=== PATIENT | female | born 1995 ===

== ENCOUNTER 2018-06-08 12:30 | Emergency (ER) | payer MEDICAID ==
[2018-06-08 12:34] VITALS: TEMP 98.5; O2SAT 99
[2018-06-08 12:35] VITALS: BMI 23.2
--- NOTE | 2018-06-08 13:03 | ED PDOC ---
HPI: Female Pain Time Seen by Provider: 06/08/18 12:34 Chief Complaint (Nursing): Female Genitourinary Chief Complaint (Provider): Pain and bleeding in History Per: Patient Additional Complaint(s): 23 yo female, no PMH, presents to ED for evaluation of vaginal bleeding and lower abdominal pain since yesterday. Patient is approximately 5 weeks , LMP 03/24/18, Past Medical History Reviewed: Nursing Documentation, Vital Signs Vital Signs: Last Vital Signs Temp 98.5 F 06/08/18 12:32 Pulse 77 06/08/18 12:32 Resp 16 06/08/18 12:32 BP 111/71 06/08/18 12:32 Pulse Ox 99 06/08/18 12:32 - Medical History PMH: No Chronic Diseases - Surgical History Surgical History: No Surg Hx - Family History Family History: States: No Known Family Hx - Living Arrangements Living Arrangements: With Family - Social History Current smoker - smoking cessation education provided: No Alcohol: None Drugs: Denies - Immunization History Hx Tetanus Toxoid Vaccination: Yes Hx Influenza Vaccination: No Hx Pneumococcal Vaccination: No - Home Medications Home Medications: Ambulatory Orders Medication Instructions Recorded No Known Home Med 02/09/18 - Allergies Allergies/Adverse Reactions: Allergies Allergy/AdvReac Type Severity Reaction Status Date / Time No Known Allergies Allergy Verified 06/08/18 12:36 Review of Systems ROS Statement: Except As Marked, All Systems Reviewed And Found Negative Gastrointestinal: Positive for: Abdominal Pain Genitourinary Female: Positive for: Vaginal Bleeding Physical Exam - Reviewed Nursing Documentation Reviewed: Yes Vital Signs Reviewed: Yes - Physical Exam Appears: Positive for: Well, Non-toxic, No Acute Distress Head Exam: Positive for: ATRAUMATIC, NORMAL INSPECTION, NORMOCEPHALIC Skin: Positive for: Normal Color, Warm, DRY Eye Exam: Positive for: EOMI, Normal appearance, PERRL ENT: Positive for: Normal ENT Inspection Neck: Positive for: Normal, Painless ROM Cardiovascular/Chest: Positive for: Regular Rate, Rhythm Respiratory: Positive for: CNT, Normal Breath Sounds Gastrointestinal/Abdominal: Positive for: Normal Exam, Soft. Negative for: Tenderness Back: Positive for: Normal Inspection Extremity: Positive for: Normal ROM Neurologic/Psych: Positive for: Alert, Oriented - Laboratory Results Result Diagrams: 06/08/18 13:15 - ECG O2 Sat by Pulse Oximetry: 99 Medical Decision Making Medical Decision Making: blood banK: O+ beta: 525 IMPRESSION: Small cystic structure within the endometrium without definitive decidual reaction, measures 7 range. Findings may represent early normal/ abnormal with ectopic not excluded. Close clinical follow-up with serial pelvic sonography and serum beta HCG levels is recommended. Pt educated on results and advised to follow up with OB or return to ED in 48 hours for repeat studies. advised to return to ED sooner if at anytime condition worsens. signs and symprtoms of ectopic discussed at length. abdomen soft, non tender and non distended on re-eval Disposition - Clinical Impression Clinical Impression: Threatened - Patient ED Disposition Is Patient to be Admitted: No - Disposition Disposition: Routine/Home Disposition Time: 15:47 Condition: STABLE Additional Instructions: Ultrasound results: IMPRESSION: Small cystic structure within the endometrium without definitive decidual reaction, measures 7 range. Findings may represent early normal/ abnormal with ectopic not excluded. Close clinical follow-up with serial pelvic sonography and serum beta HCG levels is recommended. Instructions: Bleeding With , Threatened Miscarriage Forms: [employer] (Azeri) Print Language: HEBREW
[2018-06-08 13:27] LABS: BASO % 0.4 % (0.0-2.0); EOS # 0.1 K/uL (0.0-0.7); EOS % 1.8 % (0.0-4.0); HEMOGLOBIN 12.6 g/dL (12.0-16.0); LYMPH # 1.2 K/uL (1.0-4.3); LYMPH % 14.6 % (20.0-40.0); MEAN CELL VOLUME 91.3 fl (81.0-99.0); MEAN CORPUSCULAR HEMOGLOBIN 30.8 pg (27.0-31.0); MEAN CORPUSCULAR HGB CONC 33.7 g/dL (33.0-37.0); MEAN PLATELET VOLUME 11.3 fl (7.2-11.7); MONO # 0.6 K/uL (0.0-0.8); NEUT # 6.4 K/uL (1.8-7.0); NEUT % 76.2 % (50.0-75.0); NRBC % 0.1 % (0.0-0.0); RBC 4.1 Mil/uL (3.80-5.20); RED CELL DISTRIBUTION WIDTH 13.5 % (11.5-14.5); WHITE BLOOD COUNT 8.4 K/uL (4.8-10.8)
[2018-06-08 14:13] LABS: SQUAMOUS EPITHIAL 4 /hpf (0-5); URINE BACTERIA RARE (<OCC); URINE BILIRUBIN NEGATIVE (NEGATIVE); URINE BLOOD LARGE (NEGATIVE); URINE CLARITY SLIGHTY-CLOUDY (Clear); URINE COLOR YELLOW (YELLOW); URINE GLUCOSE (UA) NEG (Normal); URINE LEUKOCYTE ESTERASE NEG Leu/uL (Negative); URINE PROTEIN NEGATIVE (NEGATIVE); URINE UROBILINOGEN 0.2-1.0 mg/dL (0.2-1.0)
--- NOTE | 2018-06-08 15:34 | US ---
Date of service: 06/08/2018 PROCEDURE: OB Pelvic Ultrasound HISTORY: pain and bleeding LMP: 03/24/2018 COMPARISON: None available. FINDINGS: UTERUS: Uterus measures 9.7 x 3.8 x 5.7 cm. Normal in size and appearance. Endometrium measures 11 mm. Small cystic structure within the endometrium measuring 0.5 cm, out of range, without definitive decidual reaction. CERVIX: Long and closed. No cervical abnormality seen. RIGHT OVARY: Measures 2.5 x 1.4 x 2.7 cm. No mass lesion. Normal flow. LEFT OVARY: Measures 3.4 x 2.4 x 2.7 cm. Cyst with debris measuring 1.5 x 1.2 x 1.5 cm. Normal flow. FREE FLUID: None. OTHER FINDINGS: None. IMPRESSION: Small cystic structure within the endometrium without definitive decidual reaction, measures 7 range. Findings may represent early normal/ abnormal with ectopic not excluded. Close clinical follow-up with serial pelvic sonography and serum beta HCG levels is recommended.
[2018-06-08 16:17] VITALS: BP 118/70; PULSE 81; RESP 18
== END 2018-06-08 16:12 | disposition home or self-care (01) ==
LOC: H.ER 12:30
DX: O20.0 Threatened abortion (principal); Z3A.01 Less than 8 weeks gestation of pregnancy

== ENCOUNTER 2019-04-06 11:19 | Emergency (ER) | payer MEDICAID ==
[2019-04-06 11:20] VITALS: BMI 26.5
[2019-04-06 11:22] VITALS: BP 101/67; PULSE 77; RESP 18; TEMP 98.8; O2SAT 99
--- NOTE | 2019-04-06 12:13 | ED PDOC ---
HPI: General Adult Time Seen by Provider: 04/06/19 12:09 Chief Complaint (Nursing): Female Genitourinary Chief Complaint (Provider): vaginal discharge History Per: Patient (24 y/o female approx M1 9 week gestation here with discharge 2 weeks intermittent brownish vaginal discharge. Notes mild abd pain. Denies any fevers/chills. Has appt with supervisor rough end next week.) Past Medical History Reviewed: Historical Data, Nursing Documentation, Vital Signs Vital Signs: Last Vital Signs Temp 98.8 F 04/06/19 11:20 Pulse 77 04/06/19 11:20 Resp 18 04/06/19 11:20 BP 101/67 04/06/19 11:20 Pulse Ox 99 04/06/19 11:20 Primary Care Provider: Procedure,Nonphys - Medical History PMH: Anemia - Family History Family History: States: No Known Family Hx - Immunization History Hx Tetanus Toxoid Vaccination: Yes Hx Influenza Vaccination: No Hx Pneumococcal Vaccination: No - Home Medications Home Medications: Ambulatory Orders Medication Instructions Recorded Iron 11/01/18 Vitamin Tablet 11/01/18 - Allergies Allergies/Adverse Reactions: Allergies Allergy/AdvReac Type Severity Reaction Status Date / Time No Known Allergies Allergy Verified 11/01/18 09:04 Review of Systems ROS Statement: Except As Marked, All Systems Reviewed And Found Negative Physical Exam - Reviewed Nursing Documentation Reviewed: Yes Vital Signs Reviewed: Yes - Physical Exam Appears: Positive for: Well, Non-toxic, No Acute Distress Head Exam: Positive for: ATRAUMATIC, NORMAL INSPECTION, NORMOCEPHALIC Skin: Positive for: Normal Color, Warm, DRY Eye Exam: Positive for: EOMI, Normal appearance, PERRL ENT: Positive for: Normal ENT Inspection Neck: Positive for: Normal, Painless ROM Cardiovascular/Chest: Positive for: Regular Rate, Rhythm Respiratory: Positive for: CNT, Normal Breath Sounds Gastrointestinal/Abdominal: Positive for: Normal Exam, Soft Pelvic Exam: Positive for: Other (bilateral adnexal tenderness elicited. No vaginal discharge noted. No blood in vault currently. Cervical os closed) Back: Positive for: Normal Inspection Extremity: Positive for: Normal ROM Neurological/Psych: Positive for: Awake, Alert, Normal Tone - Laboratory Results Result Diagrams: 04/06/19 12:32 04/06/19 12:32 - ECG O2 Sat by Pulse Oximetry: 99 - Progress ED Course And Treament: IMPRESSION: Single viable intrauterine gestation with average ultrasonic age of 9 weeks 1 day, concordant with LMP derived dates. No definite decidual hemorrhage appreciable at this time. cardiac activity 171 beats per minute. Clinical follow-up advised. Disposition - Clinical Impression Clinical Impression: Threatened miscarriage - Patient ED Disposition Is Patient to be Admitted: No - Disposition Disposition: Routine/Home Disposition Time: 18:24 Condition: FAIR Instructions: Threatened Miscarriage (DC) Forms: [facility] ED School/Work Excuse Print Language: MARSHALLESE
[2019-04-06 12:42] LABS: BASO % 0.6 % (0.0-2.0); EOS # 0.3 K/uL (0.0-0.7); EOS % 4.3 % (0.0-4.0); HEMOGLOBIN 11.4 g/dL (12.0-16.0); LYMPH # 1.4 K/uL (1.0-4.3); LYMPH % 20.8 % (20.0-40.0); MEAN CELL VOLUME 90.3 fl (81.0-99.0); MEAN CORPUSCULAR HEMOGLOBIN 30.2 pg (27.0-31.0); MEAN CORPUSCULAR HGB CONC 33.5 g/dL (33.0-37.0); MEAN PLATELET VOLUME 11.8 fl (7.2-11.7); MONO # 0.5 K/uL (0.0-0.8); MONO % 7.7 % (0.0-10.0); NEUT # 4.4 K/uL (1.8-7.0); NEUT % 66.6 % (50.0-75.0); RBC 3.77 Mil/uL (3.80-5.20); RED CELL DISTRIBUTION WIDTH 13.5 % (11.5-14.5); WHITE BLOOD COUNT 6.6 K/uL (4.8-10.8)
[2019-04-06 12:56] LABS: ALB/GLOB RATIO 1.3 (1.0-2.1); ALBUMIN 3.6 g/dL (3.5-5.0); ALT/SGPT 67 U/L (9-52); AST/SGOT 28 U/L (14-36); BLOOD UREA NITROGEN 7 mg/dl (7-17); CALCIUM 8.7 mg/dL (8.4-10.2); GFR NON-AFRICAN AMERICAN > 60
--- NOTE | 2019-04-06 18:10 | US ---
Date of service: 04/06/2019 PROCEDURE: OB Pelvic Ultrasound HISTORY: abdominal pain in LMP: 02/02/2019 suggesting gestation of 9 weeks 2 days. COMPARISON: None available. FINDINGS: UTERUS: Gestational sac: Single intrauterine gestation. Heart rate: 171 bpm. age (Ultrasound estimated): No weeks 1 day by mean CRL of 2.5 cm. Mean sac diameter 3.5 cm. Yolk sac measures 0.6 cm. Maria Isabel-gestational hemorrhage: None. Date of delivery (Ultrasound estimated) : 11/10/2019. Uterus measures 9.8 x 6.7 x 6.0 cm. Normal in size and appearance. CERVIX: Measures 4.4 cm. Long and closed. No cervical abnormality seen. RIGHT OVARY: Measures 3.2 x 3.1 x 1.8 cm. No mass lesion. Normal flow. LEFT OVARY: Measures 3.0 x 2.4 x 1.2 cm. No solid mass. Normal flow. FREE FLUID: None. OTHER FINDINGS: None. IMPRESSION: Single viable intrauterine gestation with average ultrasonic age of 9 weeks 1 day, concordant with LMP derived dates. No definite decidual hemorrhage appreciable at this time. cardiac activity 171 beats per minute. Clinical follow-up advised.
== END 2019-04-06 18:28 | disposition home or self-care (01) ==
LOC: H.ER 11:19
DX: O20.0 Threatened abortion (principal); Z3A.09 9 weeks gestation of pregnancy